=== PATIENT | female | born 1995 | race Hispanic/Latino ===

== ENCOUNTER 2024-05-08 22:30 | Inpatient (IN) | payer MEDICAID, OTHER, SELFPAY ==
[2024-05-08] MEDS ORDERED: hydrALAZINE 20 MG/ML VIAL SLOW IVP PRN (23:23)
[2024-05-09 00:26] LABS: ALT (SGPT) 176 U/L (Less than 34); AST (SGOT) 193 U/L (11-34); Albumin 2.5 g/dL (3.1-4.5); Alkaline Phosphatase 158 U/L (40-110); Anion Gap 15 mmol/L (10-20); BUN (Urea Nitrogen) 14 mg/dL (7.0-18.7); Bilirubin, Total 2.1 mg/dL (0.3-1.2); Calc. Creatinine Clearance 0 mL/min (70-130); Calcium 8.2 mg/dL (7.8-10.44); Carbon Dioxide 19 mmol/L (22-29); Chloride 102 mmol/L (98-107); Estimated GFR 120; Globulin 3.8 g/dL (2.4-3.5); Glucose 80 mg/dL (70-105); Potassium 4.4 mmol/L (3.5-5.1); Protein, Total 6.3 g/dL (6.0-8.3); Sodium 132 mmol/L (136-145)
[2024-05-09 03:42] LABS: HBsAg Index 0.15 S/CO (0-0.99); Hep B Surf Ag Non-Reactive S/CO (NonReactive)
[2024-05-09 03:59] VITALS: BMI 25.4
[2024-05-09] MEDS: fentaNYL 50 mcg/mL 1 mL Vial SLOW IVP PRN (04:15)
[2024-05-09 06:58] LABS: #Basophils 0.03 10x3/uL (0.0-0.2); #Eosinophils Less than 0.03 10x3/uL (0.0-0.5); #Monocytes 0.53 10x3/uL (0.0-1.1); #Neutrophils 5.36 10x3/uL (1.5-8.4); %Basophils 0.4 % (0.0-2.0); %Eosinophils 0.3 % (0.0-6.0); %Monocytes 7.8 % (0.0-10.0); %Neutrophils 79.1 % (40.0-75.0); Hematocrit 33.4 % (34.9-44.5); Hemoglobin 11.5 g/dL (12.0-15.5); Mean Corpuscular HGB CONC 34.4 g/dL (32.0-36.0); Mean Corpuscular Hemoglobin 31.8 pg (27.0-33.0); Mean Corpuscular Volume 92.3 fL (81.6-98.3); RBC Distribution Width 15.2 % (11.5-14.5); Red Blood Cell (RBC) Count 3.62 10x6/uL (3.90-5.03); White Blood Cell (WBC) Count 6.78 10x3/uL (3.5-10.5)
[2024-05-09 07:34] LABS: Mean Platelet Volume 13.2 fL (7.4-10.4); Platelet Count 34 10x3/uL (150-450)
[2024-05-09 07:39] LABS: Anisocytosis SLIGHT = 6-15 cells (100X) (0-5/hpf); Large Platelets SLIGHT (None Seen); MDiff Complete? YES; Ovalocytes SLIGHT = 2-5 cells (100X) (0-1/hpf); Platelet Adequacy Comment Appears Decreased; Polychromasia SLIGHT = 2-3 cells (100X) (0-2/hpf)
[2024-05-09] MEDS: Magnesium Sulfate 20 gm/500 ml 20 GM/500 ML BAG ONE (08:28)
[2024-05-09] MEDS ORDERED: Carboprost 250 MCG/ML AMP IM PRN (08:31)
[2024-05-09] MEDS ORDERED: Misoprostol 200 MCG TAB PR PRN (08:31)
[2024-05-09] MEDS ORDERED: Tranexamic Acid 1,000 MG/10 ML VIAL IVP PRN (08:31)
[2024-05-09] MEDS ORDERED: Ondansetron PF 4 MG/2 ML Vial IVP PRN ×2 (08:31→15:27)
[2024-05-09] MEDS ORDERED: Diphenoxylate HCl/Atropine Tablet PO PRN (08:31)
[2024-05-09] MEDS ORDERED: hydrALAZINE 20 MG/ML VIAL SLOW IVP PRN ×3 (08:31)
[2024-05-09] MEDS ORDERED: Lidocaine 1% (PF) 30 ML VIAL SC PRN (08:31)
[2024-05-09] MEDS ORDERED: Calcium Gluc 4.6 MEQ/10 ML (100 MG/ML) SLOW IVP PRN (08:31)
[2024-05-09] MEDS ORDERED: Labetalol HCl 100 MG/20 ML VIAL SLOW IVP PRN ×2 (08:31)
[2024-05-09] MEDS ORDERED: Lorazepam 2 MG/ML VIAL SLOW IVP PRN (08:31)
[2024-05-09] MEDS ORDERED: Promethazine HCl 25 MG/ML VIAL IM PRN ×2 (08:31→15:27)
[2024-05-09] MEDS ORDERED: Oxytocin 30 units/NS 500 ML 500 ML IV SCH (08:45)
[2024-05-09 09:27] LABS: Hematocrit 33.5 % (34.9-44.5); Hemoglobin 11.8 g/dL (12.0-15.5); Mean Corpuscular HGB CONC 35.2 g/dL (32.0-36.0); Mean Corpuscular Hemoglobin 32.4 pg (27.0-33.0); Mean Platelet Volume 12.6 fL (7.4-10.4); Platelet Count 33 10x3/uL (150-450); RBC Distribution Width 15.2 % (11.5-14.5); Red Blood Cell (RBC) Count 3.64 10x6/uL (3.90-5.03); White Blood Cell (WBC) Count 6.17 10x3/uL (3.5-10.5)
[2024-05-09 09:45] LABS: INR-International Normal Ratio 0.9; PTT 30.1 sec (22.0-33.0); Prothrombin Time 10.3 sec (9.5-12.1)
[2024-05-09 10:07] LABS: HBsAg Index 0.22 S/CO (0-0.99); Hep B Surf Ag - L&D Non-Reactive S/CO (NonReactive)
[2024-05-09 10:08] LABS: Syphilis Antibody Nonreactive (Nonreactive); Syphilis Antibody Index 0.06 S/CO (<1.00 Non-Reactive)
[2024-05-09 10:42] LABS: Hematocrit 30.4 % (34.9-44.5); Hemoglobin 10.6 g/dL (12.0-15.5); Mean Corpuscular HGB CONC 34.9 g/dL (32.0-36.0); Mean Corpuscular Hemoglobin 32.5 pg (27.0-33.0); Mean Corpuscular Volume 93.3 fL (81.6-98.3); Mean Platelet Volume 10.9 fL (7.4-10.4); Platelet Count 71 10x3/uL (150-450); RBC Distribution Width 15.5 % (11.5-14.5); Red Blood Cell (RBC) Count 3.26 10x6/uL (3.90-5.03); White Blood Cell (WBC) Count 6.12 10x3/uL (3.5-10.5)
[2024-05-09] MEDS ORDERED: Naloxone HCl 0.4 mg/ml Vial IV PRN (11:18)
[2024-05-09] MEDS ORDERED: diphenhydrAMINE 25 MG CAP PO PRN ×2 (11:18→15:27)
[2024-05-09] MEDS ORDERED: diphenhydrAMINE 50 MG/ML VIAL IM PRN (11:18)
[2024-05-09] MEDS ORDERED: FENTANYL 500 MCG/10 ML VIAL 2,000 MCG in Sodium Chloride 0.9% 60 ML IV PRN (11:18)
[2024-05-09] MEDS ORDERED: diphenhydrAMINE 50 MG/ML VIAL IVP PRN (11:18)
[2024-05-09 11:29] LABS: Fibrinogen 521 mg/dL (220-504); INR-International Normal Ratio 0.9; PTT 30.2 sec (22.0-33.0); Prothrombin Time 9.9 sec (9.5-12.1)
[2024-05-09] MEDS ORDERED: Communication Order-Pharmacy FS PRN (11:30)
[2024-05-09 11:43] LABS: D-Dimer Test Greater than 35.20 mcg/mL (0.19-0.50)
[2024-05-09 11:49] LABS: Platelet Count 71 10x3/uL (130-400)
[2024-05-09] MEDS: FENTANYL 1,000 MCG/20 ML VIAL 1,000 MCG in Sodium Chloride 0.9% 30 ML IV PRN (12:47)
[2024-05-09] MEDS ORDERED: Boostrix 0.5 ML (Tdap) VIAL (>/=7 yrs of age) IM ONE (15:27)
[2024-05-09] MEDS ORDERED: Simethicone Chewable 80 MG TAB PO PRN (15:27)
[2024-05-09] MEDS ORDERED: Bisacodyl 10 MG SUPP PR PRN (15:27)
[2024-05-09] MEDS ORDERED: Meperidine HCl/PF 25 MG (1 mL) VIAL IM PRN (15:27)
[2024-05-09 16:57] LABS: Hep A IgM AB NONREACTIVE (NonReactive); Hep A IgM S/CO 0.34 S/CO (0-0.79); Hep B Core IgM Index 0.12 S/CO (0-0.79); Hep C IgG Ab NONREACTIVE S/CO (NonReactive); Hep C Index 0.08 S/CO (0-0.79); Hepatitis B Core IgM Abs NONREACTIVE S/CO (NonReactive)
[2024-05-09] MEDS: Magnesium Sulfate 20 gm/500 ml 20 GM/500 ML BAG IVPB SCH (18:42)
[2024-05-09 22:19] LABS: Mean Platelet Volume 12.2 fL (7.4-10.4); Platelet Count 57 10x3/uL (150-450)
[2024-05-09 22:20] LABS: #Basophils Less than 0.03 10x3/uL (0.0-0.2); #Eosinophils Less than 0.03 10x3/uL (0.0-0.5); #Monocytes 0.33 10x3/uL (0.0-1.1); #Neutrophils 5.61 10x3/uL (1.5-8.4); %Basophils 0.3 % (0.0-2.0); %Eosinophils 0.2 % (0.0-6.0); %Lymphocytes 7.8 % (18.0-47.0); %Neutrophils 85.6 % (40.0-75.0); Hematocrit 25.6 % (34.9-44.5); Mean Corpuscular HGB CONC 35.2 g/dL (32.0-36.0); Mean Corpuscular Hemoglobin 32.5 pg (27.0-33.0); Mean Corpuscular Volume 92.4 fL (81.6-98.3); RBC Distribution Width 15.5 % (11.5-14.5); Red Blood Cell (RBC) Count 2.77 10x6/uL (3.90-5.03); White Blood Cell (WBC) Count 6.55 10x3/uL (3.5-10.5)
[2024-05-09 22:35] LABS: ALT (SGPT) 146 U/L (Less than 34); AST (SGOT) 183 U/L (11-34); Albumin 2.2 g/dL (3.1-4.5); Alkaline Phosphatase 127 U/L (40-110); Anion Gap 13 mmol/L (10-20); BUN (Urea Nitrogen) 9 mg/dL (7.0-18.7); Bilirubin, Total 2.5 mg/dL (0.3-1.2); Calc. Creatinine Clearance 130 mL/min (70-130); Calcium 6.9 mg/dL (7.8-10.44); Carbon Dioxide 20 mmol/L (22-29); Chloride 102 mmol/L (98-107); Estimated GFR 124; Globulin 3.2 g/dL (2.4-3.5); Glucose 99 mg/dL (70-105); Magnesium 7.5 mg/dL (1.6-2.6); Potassium 4.2 mmol/L (3.5-5.1); Protein, Total 5.4 g/dL (6.0-8.3); Sodium 131 mmol/L (136-145)
[2024-05-09 22:55] LABS: Large Platelets SLIGHT (None Seen); Platelet Adequacy Comment Appears Decreased
[2024-05-09 22:56] LABS: Anisocytosis SLIGHT = 6-15 cells (100X) (0-5/hpf); Polychromasia SLIGHT = 2-3 cells (100X) (0-2/hpf)
[2024-05-10 04:31] LABS: Hematocrit 24.3 % (34.9-44.5); Hemoglobin 8.4 g/dL (12.0-15.5); Mean Corpuscular HGB CONC 34.6 g/dL (32.0-36.0); Mean Corpuscular Hemoglobin 31.8 pg (27.0-33.0); RBC Distribution Width 15.7 % (11.5-14.5); Red Blood Cell (RBC) Count 2.64 10x6/uL (3.90-5.03); White Blood Cell (WBC) Count 5.95 10x3/uL (3.5-10.5)
[2024-05-10 04:40] LABS: ALT (SGPT) 131 U/L (Less than 34); AST (SGOT) 158 U/L (11-34); Albumin 2.1 g/dL (3.1-4.5); Alkaline Phosphatase 118 U/L (40-110); Anion Gap 12 mmol/L (10-20); BUN (Urea Nitrogen) 9 mg/dL (7.0-18.7); Bilirubin, Total 2.4 mg/dL (0.3-1.2); Calc. Creatinine Clearance 132 mL/min (70-130); Carbon Dioxide 22 mmol/L (22-29); Chloride 102 mmol/L (98-107); Estimated GFR 125; Globulin 3.1 g/dL (2.4-3.5); Glucose 88 mg/dL (70-105); Magnesium 4.3 mg/dL (1.6-2.6); Potassium 4.1 mmol/L (3.5-5.1); Protein, Total 5.2 g/dL (6.0-8.3); Sodium 132 mmol/L (136-145)
[2024-05-10 04:43] LABS: Calcium 6.9 mg/dL (7.8-10.44); Critical Call Chemistry NUR.ENP@0443/JG2/WITHREADBACK
[2024-05-10 04:47] LABS: Mean Platelet Volume 12.2 fL (7.4-10.4); Platelet Count 51 10x3/uL (150-450)
[2024-05-10] MEDS: Ibuprofen 800 MG TAB PO SCH (08:30)
[2024-05-10] MEDS: Prenatal Vitamin 1 TAB PO SCH (08:30)
[2024-05-10] MEDS: Docusate 100 MG CAP PO SCH (08:30)
[2024-05-10] MEDS: SUCCINYLCHOLINE/SOD CL,ISO/PF 200 MG/10 ML SYRINGE FS ONE (08:32)
[2024-05-10] MEDS: Tranexamic Acid 1,000 MG/10 ML VIAL ONE ×2 (08:32)
[2024-05-10] MEDS: Lidocaine 1% PF 5 ML VIAL ONE (08:32)
[2024-05-10] MEDS: Rocuronium Bromide 10 MG/ML (10ML VIAL) ONE (08:32)
[2024-05-10] MEDS: Fentanyl 100 MCG/2 ML VIAL ONE (08:32)
[2024-05-10] MEDS: PROPOFOL 20 ML ONE (08:32)
[2024-05-10] MEDS: Oxytocin 10 UNITS/ML VIAL ONE ×2 (08:32→08:33)
[2024-05-10] MEDS: Phytonadione Neonatal 1 MG/0.5 ML AMP ONE (08:33)
[2024-05-10] MEDS: Neostigmine 1 MG/ML in 5 ML SYRINGE ONE (08:33)
[2024-05-10] MEDS: Ondansetron PF 4 MG/2 ML Vial ONE (08:33)
[2024-05-10] MEDS: Erythromycin Base 0.5% Oint 1 GM TUBE ONE (08:33)
[2024-05-10] MEDS: Hepatitis B Vaccine 10 MCG/0.5 ML SYR ONE (08:33)
[2024-05-10] MEDS: Glycopyrrolate 0.2 MG/ML 5 ML SYRINGE ONE (08:33)
[2024-05-10] MEDS: Ferrous Sulfate 325 MG TAB PO SCH (13:48)
[2024-05-10] MEDS: Calcium Carbonate 500 MG ChewTAB PO SCH (15:25)
[2024-05-10] MEDS: CEFAZOLIN 2 GM VIAL ONE (15:26)
[2024-05-10] MEDS: HYDROcodone/Acetaminophen 5/325 mg Tablet PO PRN ×2 (17:57→23:53)
[2024-05-12 08:30] LABS: Hematocrit 24.1 % (34.9-44.5); Hemoglobin 7.7 g/dL (12.0-15.5); Mean Corpuscular Hemoglobin 31.7 pg (27.0-33.0); Mean Corpuscular Volume 99.2 fL (81.6-98.3); Platelet Count 225 10x3/uL (150-450); RBC Distribution Width 16.3 % (11.5-14.5); Red Blood Cell (RBC) Count 2.43 10x6/uL (3.90-5.03); White Blood Cell (WBC) Count 7.93 10x3/uL (3.5-10.5)
[2024-05-12 08:57] LABS: ALT (SGPT) 66 U/L (Less than 34); AST (SGOT) 43 U/L (11-34); Albumin 2.3 g/dL (3.1-4.5); Alkaline Phosphatase 156 U/L (40-110); Anion Gap 12 mmol/L (10-20); BUN (Urea Nitrogen) 12 mg/dL (7.0-18.7); Bilirubin, Total 0.6 mg/dL (0.3-1.2); Calc. Creatinine Clearance 137 mL/min (70-130); Calcium 8.3 mg/dL (7.8-10.44); Carbon Dioxide 26 mmol/L (22-29); Chloride 104 mmol/L (98-107); Estimated GFR 126; Globulin 3.5 g/dL (2.4-3.5); Glucose 71 mg/dL (70-105); Potassium 3.8 mmol/L (3.5-5.1); Protein, Total 5.8 g/dL (6.0-8.3); Sodium 138 mmol/L (136-145)
[2024-05-12] MEDS: NIFEdipine XL 30 MG ER.TAB PO SCH (10:09)
[2024-05-13 12:05] VITALS: BP 128/93; TEMP 98.7
== END 2024-05-13 15:20 | disposition home or self-care (01) | DRG 787 ==
LOC: CSHLD/OP 22:30 → CSHLD 05-09 08:32 → CSHPP 05-10 12:55
PROVIDERS: ADMIT Family Medicine; ATTEND Family Medicine
PROC: 10D00Z1 Extraction of Products of Conception, Low, Open Approach (ICD-10-PCS; principal; 2024-05-09)
DX: O14.24 HELLP syndrome, complicating childbirth (principal); J98.11 Atelectasis; O99.52 Diseases of the respiratory system complicating childbirth; Z3A.38 38 weeks gestation of pregnancy; Z37.0 Single live birth
CPT/HCPCS: 36415; 36430; 51702; 71045; 76705; 76815; 76819; 80053; 80074; 83010; 83615; 83690; 83735; 85025; 85027; 85049; 85300; 85362; 85384; 85610; 85730; 86780; 86850; 86900; 86901; 87340; 88307; 99285; J2405; J2590; J2704; J3010; J3475; P9035